=== PATIENT | female | born 1975 | race Caucasian/White ===

== ENCOUNTER 2020-03-03 16:06 | Emergency (ER) | payer OTHER ==
[~2020-03-03] VITALS: Ht 175.3 cm; Wt 100.0 kg
[2020-03-03] MEDS ORDERED: IOHEXOL 300 MG/ML 75 ML VIAL. IV ONE (16:45)
[2020-03-03] MEDS ORDERED: CONTRAST GIVEN. MC PRN (16:45)
[2020-03-03 17:02] LABS: BASO % 0 % (0-3); EOS % 0 % (0-3); HEMATOCRIT 40.5 % (36.0-47.0); HEMOGLOBIN 13.8 g/dL (12.0-15.5); LYMPH # 2.1 x10^3/uL (1.0-4.8); LYMPH % 38 % (24-48); MEAN CORPUSCULAR HEMOGLOBIN 30 pg (25-35); MEAN CORPUSCULAR HGB CONC 34 g/dL (31-37); MEAN CORPUSCULAR VOLUME 88 fL (79-100); MONO # 0.3 x10^3/uL (0.0-1.1); MONO % 6 % (0-9); NEUT % 56 % (31-73); PLATELET COUNT 252 x10^3/uL (140-400); RED BLOOD COUNT 4.61 x10^6/uL (3.50-5.40); RED CELL DISTRIBUTION WIDTH 13.2 % (11.5-14.5); WHITE BLOOD COUNT 5.4 x10^3/uL (4.0-11.0)
[2020-03-03 17:13] LABS: CALCIUM 9.1 mg/dL (8.5-10.1); CREATININE 0.9 mg/dL (0.6-1.0); GFR 67.4
[2020-03-03 17:15] LABS: BILIRUBIN,URINE NEG (NEG); CLARITY,URINE CLEAR; COLOR,URINE STRAW; GLUCOSE,URINE NEG (NEG); UROBILINOGEN,URINE 0.2 mg/dL (0.2 mg/dL)
[2020-03-03 17:16] LABS: BACTERIA,URINE 0 /HPF (0-FEW); NITRITE,URINE NEG (NEG); RBC,URINE 0 /HPF (0-2); WBC,URINE 0 /HPF (0-4)
[2020-03-03 17:20] LABS: ALBUMIN 3.9 g/dL (3.4-5.0); ALBUMIN/GLOBULIN RATIO 1.1 (1.0-1.7); TOTAL BILIRUBIN 0.2 mg/dL (0.2-1.0); TOTAL PROTEIN 7.4 g/dL (6.4-8.2)
--- NOTE | 2020-03-03 17:30 | RAD ---
Exam: CT of abdomen and pelvis with contrast INDICATION: Abdominal pain, vaginal bleeding TECHNIQUE: Sequential axial images through the abdomen and pelvis obtained following the administration of 75 mL of Omni 300 IV contrast. Sagittal and coronal reformatted images were reconstructed from the axial data and reviewed. Comparisons: None FINDINGS: Heart size is normal. No pericardial Effusion. Visualized lung bases are clear. No pleural effusion. Liver, spleen, pancreas, gallbladder and adrenals are unremarkable. No perinephric inflammation or hydronephrosis. No renal or ureteral calculi are identified. Bladder is decompressed not well evaluated. Uterus is absent. There is a cystic lesion at the right adnexa which measures approximately 2.5 cm in diameter. Large and small bowel are unremarkable. Appendix is normal. No free intra-abdominal air or fluid. No obstruction. Abdominal aorta has a normal course and caliber. Abdominal vasculature is patent. No enlarged abdominal lymph nodes are identified. No suspicious osseous lesions or acute fractures. IMPRESSION: 1. Cystic lesion at the right adnexa measuring approximately 2.5 cm incompletely evaluated on CT. 2. Hysterectomy changes. Exposure: One or more of the following in the visualized dose reduction techniques were utilized for this examination: 1. Automated exposure control 2. Adjustment of the MA and/or KV according to patient size 3. Use of iterative of reconstructive technique Electronically signed by: Hi Reynolds MD (03/03/2020 5:27 PM) [id number]
--- NOTE | 2020-03-03 17:41 | PHYS DOC ---
Past History Past Medical History: Endometriosis, Migraines (EFRAIN CARLOS DO) Past Surgical History: , Hysterectomy (EFRAIN CARLOS DO) Alcohol Use: None (EFRAIN CARLOS DO) General Adult EDM: Chief Complaint: ABDOMINAL PAIN HPI: HPI: Patient is a [age] year old [sex] who presents with [] (EFRAIN CARLOS DO) Review of Systems: Review of Systems: Constitutional: Denies fever or chills Eyes: Denies change in visual acuity HENT: Denies nasal congestion or sore throat Respiratory: Denies cough or shortness of breath Cardiovascular: Denies chest pain or edema GI: Denies abdominal pain, nausea, vomiting, bloody stools or diarrhea : Denies dysuria Musculoskeletal: Denies back pain or joint pain Integument: Denies rash Neurologic: Denies headache, focal weakness or sensory changes Endocrine: Denies polyuria or polydipsia Lymphatic: Denies swollen glands Psychiatric: Denies depression or anxiety (EFRAIN CARLOS DO) Heart Score: Risk Factors: Risk Factors: DM, Current or recent (<one month) smoker, HTN, HLP, family history of CAD, obesity. Risk Scores: Score 0 - 3: 2.5% MACE over next 6 weeks - Discharge Home Score 4 - 6: 20.3% MACE over next 6 weeks - Admit for Clinical Observation Score 7 - 10: 72.7% MACE over next 6 weeks - Early Invasive Strategies (EFRAIN CARLOS DO) Current Medications: Current Meds: Current Medications Medications (Trade) Dose Ordered Sig/Juanita Start Time Stop Time Status Last Admin Dose Admin Info (Do NOT chart on this entry -- for MONITORING) 1 each PRN DAILY PRN 03/03/20 16:45 03/05/20 16:44 Iohexol (Omnipaque 300 Mg/ml) 75 ml 1X ONCE 03/03/20 16:45 03/03/20 16:46 DC 03/03/20 17:07 75 ML (EFRAIN CARLOS DO) Allergies: Allergies: Allergies Coded Allergies Type Severity Reaction Last Updated Verified Wnaywog-Xce-Ppk Reductase Inhibitor Allergy Unknown 03/03/20 Yes Sulfa (Sulfonamide Antibiotics) Allergy Unknown 03/03/20 Yes morphine Allergy Unknown 03/03/20 Yes simvastatin Allergy Unknown 03/03/20 Yes (EFRAIN CARLOS DO) Physical Exam: PE: Constitutional: Well developed, well nourished, no acute distress, non-toxic appearance. [] HENT: Normocephalic, atraumatic, bilateral external ears normal, oropharynx moist, no oral exudates, nose normal. [] Eyes: PERRLA, EOMI, conjunctiva normal, no discharge. [] Neck: Normal range of motion, no tenderness, supple, no stridor. [] Cardiovascular:Heart rate regular rhythm, no murmur [] Lungs & Thorax: Bilateral breath sounds clear to auscultation [] Abdomen: Bowel sounds normal, soft, no tenderness, no masses, no pulsatile masses. [] Skin: Warm, dry, no erythema, no rash. [] Back: No tenderness, no CVA tenderness. [] Extremities: No tenderness, no cyanosis, no clubbing, ROM intact, no edema. [] Neurologic: Alert and oriented X 3, normal motor function, normal sensory function, no focal deficits noted. [] Psychologic: Affect normal, judgement normal, mood normal. [] (EFRAIN CARLOS DO) Current Patient Data: Labs: Laboratory Tests Test 03/03/20 16:41 03/03/20 16:43 Urine Collection Type Unknown Urine Color Straw Urine Clarity Clear Urine pH 5.5 Urine Specific Jameson <=1.005 Urine Protein Neg (NEG-TRACE) Urine Glucose (UA) Neg mg/dL (NEG) Urine Ketones (Stick) Neg mg/dL (NEG) Urine Blood Neg (NEG) Urine Nitrite Neg (NEG) Urine Bilirubin Neg (NEG) Urine Urobilinogen Dipstick 0.2 mg/dL (0.2 mg/dL) Urine Leukocyte Esterase Neg (NEG) Urine RBC 0 /HPF (0-2) Urine WBC 0 /HPF (0-4) Urine Bacteria 0 /HPF (0-FEW) White Blood Count 5.4 x10^3/uL (4.0-11.0) Red Blood Count 4.61 x10^6/uL (3.50-5.40) Hemoglobin 13.8 g/dL (12.0-15.5) Hematocrit 40.5 % (36.0-47.0) Mean Corpuscular Volume 88 fL (79-100) Mean Corpuscular Hemoglobin 30 pg (25-35) Mean Corpuscular Hemoglobin Concent 34 g/dL (31-37) Red Cell Distribution Width 13.2 % (11.5-14.5) Platelet Count 252 x10^3/uL (140-400) Neutrophils (%) (Auto) 56 % (31-73) Lymphocytes (%) (Auto) 38 % (24-48) Monocytes (%) (Auto) 6 % (0-9) Eosinophils (%) (Auto) 0 % (0-3) Basophils (%) (Auto) 0 % (0-3) Neutrophils # (Auto) 3.0 x10^3uL (1.8-7.7) Lymphocytes # (Auto) 2.1 x10^3/uL (1.0-4.8) Monocytes # (Auto) 0.3 x10^3/uL (0.0-1.1) Eosinophils # (Auto) 0.0 x10^3/uL (0.0-0.7) Basophils # (Auto) 0.0 x10^3/uL (0.0-0.2) Sodium Level 138 mmol/L (136-145) Potassium Level 4.0 mmol/L (3.5-5.1) Chloride Level 102 mmol/L (98-107) Carbon Dioxide Level 32 mmol/L (21-32) Anion Gap 4 (6-14) L Blood Urea Nitrogen 12 mg/dL (7-20) Creatinine 0.9 mg/dL (0.6-1.0) Estimated GFR (Cockcroft-Gault) 67.4 BUN/Creatinine Ratio 13 (6-20) Glucose Level 104 mg/dL (70-99) H Calcium Level 9.1 mg/dL (8.5-10.1) Total Bilirubin 0.2 mg/dL (0.2-1.0) Aspartate Amino Transferase (AST) 20 U/L (15-37) Alanine Aminotransferase (ALT) 37 U/L (14-59) Alkaline Phosphatase 94 U/L (46-116) Total Protein 7.4 g/dL (6.4-8.2) Albumin 3.9 g/dL (3.4-5.0) Albumin/Globulin Ratio 1.1 (1.0-1.7) Vital Signs: Vital Signs Date Time Temp Pulse Resp B/P (MAP) Pulse Ox O2 Delivery O2 Flow Rate FiO2 03/03/20 16:31 98.2 92 18 151/83 (105) 97 Room Air (EFRAIN CARLOS DO) EKG: EKG: [] (EFRAIN CARLOS DO) Radiology/Procedures: Radiology/Procedures: [] Impressions: Exam: CT of abdomen and pelvis with contrast INDICATION: Abdominal pain, vaginal bleeding TECHNIQUE: Sequential axial images through the abdomen and pelvis obtained following the administration of 75 mL of Omni 300 IV contrast. Sagittal and coronal reformatted images were reconstructed from the axial data and reviewed. Comparisons: None FINDINGS: Heart size is normal. No pericardial Effusion. Visualized lung bases are clear. No pleural effusion. Liver, spleen, pancreas, gallbladder and adrenals are unremarkable. No perinephric inflammation or hydronephrosis. No renal or ureteral calculi are identified. Bladder is decompressed not well evaluated. Uterus is absent. There is a cystic lesion at the right adnexa which measures approximately 2.5 cm in diameter. Large and small bowel are unremarkable. Appendix is normal. No free intra-abdominal air or fluid. No obstruction. Abdominal aorta has a normal course and caliber. Abdominal vasculature is patent. No enlarged abdominal lymph nodes are identified. No suspicious osseous lesions or acute fractures. IMPRESSION: 1. Cystic lesion at the right adnexa measuring approximately 2.5 cm incompletely evaluated on CT. 2. Hysterectomy changes. Exposure: One or more of the following in the visualized dose reduction techniques were utilized for this examination: 1. Automated exposure control 2. Adjustment of the MA and/or KV according to patient size 3. Use of iterative of reconstructive technique Electronically signed by: Hi Quiles MD (03/03/2020 5:27 PM) [id number] DICTATED AND SIGNED BY: HI QUILES MD DATE: 03/03/20 1727 CC: EFRAIN CARLOS DO; PCP,NO ~ (EFRAIN CARLOS DO) Course & Med Decision Making: Course & Med Decision Making Pertinent Labs and Imaging studies reviewed. (See chart for details) The patient's labs are unremarkable. Her CT shows possible 2.5 cm cyst in the right adnexa. This is not completely visualized. See official order for more details. I will order an ultrasound to rule out torsion. Patient has had a total hysterectomy including her cervix. One ovary was left after that surgery. She does not member if it was the right or the left. Ultrasound is pending. I am signing the patient out to Dr. Nathan at 1800. [] (EFRAIN CARLOS DO) Course & Med Decision Making Patient seen and evaluated by myself after thorough signout from daytime physician Agreed with daytime physicians HPI, reported physical exam findings and work-up thus far Patient asymptomatic at time of my evaluation, I discussed ER work-up with patient, I discussed little indication or need for further ER work-up or inpatient admission at this time, patient agreed Discussed need for close outpatient PCP follow-up, patient reports having [facility] M[employer] ASSISTANT established in local area whom she could follow-up about right ovarian cyst, I feel this is appropriate I discussed strict return precautions for patient's abdominal pain, all questions and concerns were addressed prior to ER departure home in stable condition Patient aware that this may be an acute presentation of more concerning process and amenable to returning to our ER for medical evaluation should such concerning signs or symptoms re-present (MARILEE HAGER DO) Dragon Disclaimer: Dragon Disclaimer: This electronic medical record was generated, in whole or in part, using a voice recognition dictation system. (EFRAIN CARLOS DO) Departure Departure: Impression: Primary Impression: Abdominal pain Qualified Codes: R10.30 - Lower abdominal pain, unspecified Additional Impression: Right ovarian cyst Disposition: HOME/RESIDENCE PRIOR TO ADM Condition: STABLE Referrals: PCP,NO (PCP) Patient Instructions: Ovarian Cyst, [id number] Additional Instructions: You have been evaluated in the Emergency Department today for abdominal pain. Your evaluation was not suggestive of any emergent condition requiring medical intervention at this time. However, some abdominal problems make take more time to appear. Therefore, it is important for you to watch for any new symptoms or worsening of your current condition. As discussed prior to your ER departure, I advised you to follow-up with your primary care physician and outpatient [employer] ASSISTANT to discuss findings and further management of your right ovarian cyst Return to the Emergency Department if you experience worsening pain, persistent fevers greater than 100.4, recurrent vomiting, blood in vomit, blood in stool, dark tarry stool, chest pain, difficulty breathing, or any other concerning symptoms. Justification of Admission: Justification of Admission: Justification of Admission Dx: N/A (EFRAIN CARLOS DO) Justification of Admission Dx: N/A (MARILEE HAGER DO) EFRAIN CARLOS DO Mar 03, 2020 17:41 MARILEE HAGER DO Mar 03, 2020 18:51
[2020-03-03 18:04] VITALS: BP 152/92
--- NOTE | 2020-03-03 18:19 | RAD ---
Transvaginal ultrasound History: Cyst on CT Comparison: CT the same day Findings: Multiple transvaginal sonographic images of the pelvis are submitted. There has been hysterectomy and left oophorectomy. Right ovary measured 3.6 x 2.2 x 2.3 cm. There is an anechoic lesion of the right ovary 2.5 x 1.9 x 2.3 cm. There is normal color flow and low resistance vascularity of the right ovary. There is trace free fluid in the pelvis. Impression: 1. There is simple cyst of the right ovary. There is trace free fluid. There has been hysterectomy and left oophorectomy. Electronically signed by: Lam Hutchison MD (03/03/2020 6:16 PM) [facility]
== END 2020-03-03 19:03 | disposition home or self-care (01) ==
LOC: ER 16:06
DX: N83.201 Unspecified ovarian cyst, right side (principal); G43.909 Migraine, unspecified, not intractable, without status migrainosus; Z98.890 Other specified postprocedural states; Z90.710 Acquired absence of both cervix and uterus; Z88.5 Allergy status to narcotic agent; Z88.2 Allergy status to sulfonamides; Z88.8 Allergy status to other drugs, medicaments and biological substances
CPT/HCPCS: 36415; 74177; 76830; 80053; 81001; 85025; 99285; Q9967

== ENCOUNTER → 2020-05-07 | Outpatient (CLI) | payer OTHER ==
--- NOTE | 2020-05-07 14:55 | RAD ---
ANKLE LEFT 3V DATE: 05/07/2020 12:00 AM INDICATION: LEFT ANKLE PAIN AFTER WORKING OUT 1 WEEK AGO COMPARISON: None. FINDINGS: Bones: There is no evidence of acute fracture or dislocation. Joints: The ankle mortise is congruent. No widening of the distal tibiofibular syndesmosis. Miscellaneous: None. IMPRESSION: No evidence of acute fracture. Electronically signed by: Lam King MD (05/07/2020 2:53 PM) [id number]
== END ==
LOC: DXRAD 14:02
PROVIDERS: ATTEND Physician Assistant
DX: S99.912A Unspecified injury of left ankle, initial encounter (principal); X58.XXXA Exposure to other specified factors, initial encounter; Y93.89 Activity, other specified; Y92.89 Other specified places as the place of occurrence of the external cause; Y99.8 Other external cause status
CPT/HCPCS: 73610

== ENCOUNTER 2020-07-18 12:10 | Emergency (ER) | payer OTHER ==
[~2020-07-18] VITALS: Ht 175.3 cm; Wt 105.4 kg
--- NOTE | 2020-07-18 12:46 | PHYS DOC ---
Past History Past Medical History: Endometriosis, Migraines, Other Additional Past Medical Histor: CHRONIC IDIOPATHIC URTICARIA (WINSTON SHETTY APRN) Past Surgical History: , Hysterectomy (WINSTON SHETTY APRN) Alcohol Use: None (WINSTON SHETTY APRN) Adult General Chief Complaint Chief Complaint: HEADACHE HPI HPI Patient is a 44-year-old female who reports 7 days ago last Monday she was getting something out of a bunk bed and went to stand up and bumped the back of her head. Patient denies any loss of consciousness from this bumping of her head. Patient states since then she is had intermittent headaches with nausea. Patient denies vomiting, patient denies abdominal pain, constipation, or seeing blood in her stools. Patient denies any nasal congestion, chest congestion, chest pains. Patient denies any recent fever or chills. Patient states she has a history of migraines, reports that this headache feels much like a migraine except for her migraines usually manifest with a frontal headache with this 1 manifesting with occipital head pain. Patient states this pain radiates down the back of her neck and currently rates her pain at 8/10 pain on a 1-10 pain scale. Patient states she has taken a few doses of Tylenol over the past week and noticed only mild relief of her headache pains. Patient also complains of photophobia, denies visual changes, denies numbness or tingling down her extremities, denies other neurological symptoms. Patient denies any nasal drainage, denies any drainage from her ears. Patient reports past surgical history of endometrial ablation, 2 C-sections, and a hysterectomy. Patient's allergies are to sulfa, statins, and morphine. Patient states she takes Xolair 300 mg q. 4 weeks for a chronic idiopathic urticaria which has caused her to have anaphylactic reactions. Patient states her last reaction was greater than 1 year ago. Patient denies any other injuries or physical complaints. (WINSTON SHETTY APRN) Review of Systems Review of Systems 14 body systems of review of systems have been reviewed. See HPI for pertinent positives and negative responses, otherwise all other systems are negative, nonpertinent or noncontributory. (WINSTON SHETTY APRN) Current Medications Current Medications Patient reports a current medication history of Xolair 300 mg q. 4 weeks, estrogen 1.5 mg daily, Effexor 75 mg daily, Zyrtec 10 mg daily, vitamin D supplement daily, omega-3 supplement daily. (WINSTON SHETTY APRN) Allergies Allergies Allergies Coded Allergies Type Severity Reaction Last Updated Verified Eatqiyj-Gfi-Ors Reductase Inhibitor Allergy Unknown 03/03/20 Yes Sulfa (Sulfonamide Antibiotics) Allergy Unknown 03/03/20 Yes morphine Allergy Unknown 03/03/20 Yes simvastatin Allergy Unknown 03/03/20 Yes (WINSTON SHETTY APRN) Physical Exam Physical Exam Constitutional: Well developed, well nourished, no acute distress, non-toxic appearance. HENT: Normocephalic, atraumatic, bilateral external ears normal, oropharynx moist, no oral exudates, nose normal. Pain elicited in occipital area, no depression noted, no ecchymotic area noted, no hematoma appreciated, skin intact. No nolan sign appreciated, no raccoon eyes appreciated, no drainage from naris, no drainage from external auditory canals bilateral. Eyes: PERRLA, EOMI, conjunctiva normal, no discharge. Pupils 4 mm, photophobia elicited during eye exam. Neck: Normal range of motion, with midline spinal tenderness to palpation, no step-offs appreciated, no ecchymotic areas appreciated, no crepitus appreciated, no nuchal rigidity, supple, no stridor. Cardiovascular:Heart rate regular rhythm, no murmur, heart sounds S1-S2 to auscultation. Lungs & Thorax: Bilateral breath sounds clear to auscultation all lung knight. Abdomen: Bowel sounds normal, soft, no tenderness, no masses, no pulsatile m asses. Skin: Warm, dry, no erythema, no rash. Back: No tenderness, no CVA tenderness. Extremities: No tenderness, no cyanosis, no clubbing, ROM intact, no edema. Neurologic: Alert and oriented X 3, normal motor function, normal sensory function, no focal deficits noted. Psychologic: Affect normal, judgement normal, mood normal. (WINSTON SHETTY APRN) Current Patient Data Vital Signs Vital Signs Date Time Temp Pulse Resp B/P (MAP) Pulse Ox O2 Delivery O2 Flow Rate FiO2 07/18/20 12:20 97.7 73 20 151/85 (107) 97 Room Air (WINSTON SHETTY APRN) EKG EKG [] (WINSTON SHETTY APRN) Radiology/Procedures Radiology/Procedures SEX: F EXAM STATUS: REG ER ORD. PHYSICIAN: WINSTON SHETTY APRN REASON: BLUNT HEAD TRAUMA OCCIPITAL AREA WITH MIDLINE SPINE PAIN PROCEDURE: CT HEAD AND CERVICAL SPINE WO CT brain without contrast, CT C-spine without contrast. HISTORY: Blunt head trauma occipital area, midline C-spine pain CT brain CT scan of the brain was done without contrast. A skull fracture is not identified. Sinuses are clear. There is no intracranial hemorrhage or subdural hematoma. There is no mass or shift of the midline. Ventricles are normal in size. IMPRESSION: 1. No intracranial hemorrhage or acute finding noted. End impression CT cervical spine Axial CT images were obtained to the cervical spine. Sagittal and coronal reconstructed images were reviewed. An acute C-spine fracture is not identified. There is no focal disc protrusion. There is disc space narrowing at C5-6 with spurring. C-spine is in normal alignment. IMPRESSION: 1. Mild degenerative changes in the cervical spine most prominent at C5-6. 2. No acute C-spine fracture. RS Compliance Statement: One or more of the following individualized dose reduction techniques were utilized for this examination: 1. Automated exposure control 2. Adjustment of the mA and/or kV according to patient size 3. Use of iterative reconstruction technique Electronically signed by: Chintan Ayala MD (07/18/2020 1:08 PM) [facility] DICTATED AND SIGNED BY: CHINTAN AYALA MD DATE: 07/18/20 1300 CC: WINSTON SHETTY APRN; KATHERINE KELLY APRN ~MTH0 0 (WINSTON SHETTY APRN) Heart Score Risk Factors: Risk Factors: DM, Current or recent (<one month) smoker, HTN, HLP, family history of CAD, obesity. Risk Scores: Risk Factors: DM, Current or recent (<one month) smoker, HTN, HLP, family history of CAD, obesity. (WINSTON SHETTY APRN) Course & Med Decision Making Course & Med Decision Making Pertinent Labs and Imaging studies reviewed. (See chart for details) 44-year-old female presents to the emergency department reporting a blunt head trauma to her occipital area 7 days ago. Patient reports intermittent headaches with nausea since bumping her head. Patient does have a history of migraine headaches and reports this headache very similar to her previous migraines however she hurts in her occipital area rather than her frontal area. ED plan CT head and C-spine without contrast, saline lock, 4 mg IV Zofran, CBC, CMP. Pending results at this time. CT head and C-spine read negative for acute fracture or acute process for house radiologist or rotation. Labs were nonconcerning. Will treat headache with headache cocktail to include 1 L normal saline, 30 mg Toradol IV, 10 mg Compazine IV, 25 mg Benadryl IV. Reexamination of patient, patient states total pain relief of her headache. Patient has no further aches or pains or physical complaints. Discussed CT and lab results with patient, patient gave verbal understanding of discharge home instructions, return to ER precautions and concerns, will follow up with her primary care doctor if symptoms persist, had no further questions or concerns and was discharged home without incident. (WINSTON SHETTY APRN) Course & Med Decision Making I oversaw on the above date of service of this patient and discussed the care with the DISHWASHER PREPARER. I agree with the findings, plan of care, and disposition as documented. (MARILEE HAGER DO) Dragon Disclaimer Dragon Disclaimer This electronic medical record was generated, in whole or in part, using a voice recognition dictation system. (WINSTON SHETTY APRN) Departure Departure: Impression: Primary Impression: Blunt head injury Additional Impressions: Headache Nausea Disposition: 01 DC HOME SELF CARE/HOMELESS Condition: IMPROVED Referrals: KATHERINE KELLY APRN (PCP) Patient Instructions: Head Injury, Adult Additional Instructions: Your evaluated in the emergency department today for a head injury, the CT scan performed of your head and cervical spine did not show any concerning injuries. Please follow-up with your primary care doctor if symptoms persist. Return to the emergency department for worsening symptoms or other concerns Problem Qualifiers Primary Impression: Blunt head injury Encounter type: initial encounter Qualified Codes: S09.8XXA - Other specified injuries of head, initial encounter Additional Impressions: Headache Headache type: unspecified Headache chronicity pattern: unspecified pattern Intractability: not intractable Qualified Codes: R51.9 - Headache, unspecified WINSTON SHETTY APRN Jul 18, 2020 12:46 MARILEE HAGER DO Jul 19, 2020 06:08
[2020-07-18 13:00] LABS: BASO % 0 % (0-3); EOS % 0 % (0-3); HEMATOCRIT 41.7 % (36.0-47.0); HEMOGLOBIN 14.3 g/dL (12.0-15.5); LYMPH # 1.8 x10^3/uL (1.0-4.8); LYMPH % 37 % (24-48); MEAN CORPUSCULAR HEMOGLOBIN 30 pg (25-35); MEAN CORPUSCULAR HGB CONC 34 g/dL (31-37); MEAN CORPUSCULAR VOLUME 86 fL (79-100); MONO # 0.3 x10^3/uL (0.0-1.1); MONO % 6 % (0-9); NEUT # 2.8 x10^3uL (1.8-7.7); NEUT % 57 % (31-73); PLATELET COUNT 258 x10^3/uL (140-400); RED BLOOD COUNT 4.83 x10^6/uL (3.50-5.40); RED CELL DISTRIBUTION WIDTH 12.9 % (11.5-14.5); WHITE BLOOD COUNT 4.8 x10^3/uL (4.0-11.0)
[2020-07-18] MEDS ORDERED: ONDANSETRON PF 4 MG/2 ML VIAL. IVP ONE (13:00)
[2020-07-18 13:02] LABS: CALCIUM 9.1 mg/dL (8.5-10.1); CREATININE 0.9 mg/dL (0.6-1.0); GFR 67.4; POTASSIUM 3.8 mmol/L (3.5-5.1)
[2020-07-18 13:09] LABS: ALBUMIN/GLOBULIN RATIO 1.1 (1.0-1.7); TOTAL BILIRUBIN 0.3 mg/dL (0.2-1.0); TOTAL PROTEIN 7.7 g/dL (6.4-8.2)
--- NOTE | 2020-07-18 13:17 | RAD ---
CT brain without contrast, CT C-spine without contrast. HISTORY: Blunt head trauma occipital area, midline C-spine pain CT brain CT scan of the brain was done without contrast. A skull fracture is not identified. Sinuses are clear . There is no intracranial hemorrhage or subdural hematoma. There is no mass or shift of the midline. Ventricles are normal in size. IMPRESSION: 1. No intracranial hemorrhage or acute finding noted. End impression CT cervical spine Axial CT images were obtained to the cervical spine. Sagittal and coronal reconstructed images were r eviewed. An acute C-spine fracture is not identified. There is no focal disc protrusion. There is dis c space narrowing at C5-6 with spurring. C-spine is in normal alignment. IMPRESSION: 1. Mild degenerative changes in the cervical spine most prominent at C5-6. 2. No acute C-spine fracture. PQRS Compliance Statement: One or more of the following individualized dose reduction techniques were utilized for this examinat ion: 1. Automated exposure control 2. Adjustment of the mA and/or kV according to patient size 3. Use of iterative reconstruction technique Electronically signed by: Chintan Ayala MD (07/18/2020 1:08 PM) [facility]
[2020-07-18] MEDS ORDERED: diphenhydrAMINE 50 MG/ML VIAL IVP ONE (13:30)
[2020-07-18] MEDS ORDERED: PROCHLORPERAZINE 10 MG/2 ML VIAL. IV ONE (13:30)
[2020-07-18] MEDS ORDERED: KETOROLAC 30 MG/ML VIAL. IVP ONE (13:30)
[2020-07-18] MEDS ORDERED: IV NORMAL SALINE 1,000ML 1,000 ML IV ONE (13:30)
[2020-07-18 13:49] VITALS: BP 136/78
== END 2020-07-18 14:30 | disposition home or self-care (01) ==
LOC: ER 12:10
DX: S09.90XA Unspecified injury of head, initial encounter (principal); G43.909 Migraine, unspecified, not intractable, without status migrainosus; Z88.8 Allergy status to other drugs, medicaments and biological substances; Z88.2 Allergy status to sulfonamides; Z88.5 Allergy status to narcotic agent; W22.8XXA Striking against or struck by other objects, initial encounter; Y93.89 Activity, other specified; Y92.89 Other specified places as the place of occurrence of the external cause; Y99.8 Other external cause status
CPT/HCPCS: 36415; 70450; 72125; 80053; 85025; 96361; 96374; 96375; 99285; J0780; J1200; J1885; J2405; J7030

== ENCOUNTER 2020-09-15 14:48 | Emergency (ER) | payer OTHER ==
[~2020-09-15] VITALS: Ht 175.3 cm; Wt 100.0 kg
[2020-09-15] MEDS: ONDANSETRON PF 4 MG/2 ML VIAL. IVP ONE (15:15)
[2020-09-15] MEDS: IV NORMAL SALINE 1,000ML 1,000 ML IV ONE (15:45)
--- NOTE | 2020-09-15 15:55 | EKG ---
[address] [address] Test Date: 2020-09-15 Test Time: 15:18:38 Pat Name: DONITA MENESES Department: Room: Gender: F [employer] Internship: YAJAIRA : 1975 Requested By: CHARITO VORA Order Number: [id number] Reading MD: Measurements Intervals Ord Rate: 69 P: 0 OH: 144 QRS: 45 QRSD: 84 T: 28 QT: 394 QTc: 424 Interpretive Statements SINUS RHYTHM R-S TRANSITION ZONE IN V LEADS DISPLACED TO THE LEFT OTHERWISE NORMAL ECG RI6.02 No previous ECG available for comparison
[2020-09-15 15:59] LABS: CALCIUM 9.7 mg/dL (8.5-10.1); CREATININE 0.8 mg/dL (0.6-1.0); GFR 76.9; POTASSIUM 4.4 mmol/L (3.5-5.1)
[2020-09-15 16:00] LABS: BASO % 0 % (0-3); EOS % 0 % (0-3); HEMATOCRIT 42.2 % (36.0-47.0); HEMOGLOBIN 14.4 g/dL (12.0-15.5); LYMPH # 1.3 x10^3/uL (1.0-4.8); LYMPH % 27 % (24-48); MEAN CORPUSCULAR HEMOGLOBIN 29 pg (25-35); MEAN CORPUSCULAR HGB CONC 34 g/dL (31-37); MEAN CORPUSCULAR VOLUME 87 fL (79-100); MONO # 0.4 x10^3/uL (0.0-1.1); MONO % 8 % (0-9); NEUT # 3.1 x10^3uL (1.8-7.7); NEUT % 65 % (31-73); PLATELET COUNT 258 x10^3/uL (140-400); RED BLOOD COUNT 4.88 x10^6/uL (3.50-5.40); RED CELL DISTRIBUTION WIDTH 12.8 % (11.5-14.5); WHITE BLOOD COUNT 4.8 x10^3/uL (4.0-11.0)
[2020-09-15 16:04] LABS: ALBUMIN 4.2 g/dL (3.4-5.0); ALBUMIN/GLOBULIN RATIO 1.2 (1.0-1.7); TOTAL BILIRUBIN 0.4 mg/dL (0.2-1.0); TOTAL PROTEIN 7.7 g/dL (6.4-8.2)
[2020-09-15 16:09] LABS: GASTRIC OB PAT POSITIVE (NEG)
[2020-09-15] MEDS: IOHEXOL 300 MG/ML 75 ML VIAL. IV ONE (16:18)
--- NOTE | 2020-09-15 16:47 | RAD ---
CT abdomen pelvis with contrast. HISTORY: Hematemesis CT scan the abdomen pelvis was done using 75 mL Omnipaque contrast. Lung bases are clear. There is no effusion. There is a tiny cysts in the left liver. There is mild fatty change in the liver. No other liver lesion is noted. Spleen is generous in size without a focal lesion. Adrenal glands and pancrea s are normal. There is no mass or hydronephrosis in the kidneys. Appendix is normal. There are phlebo liths in the pelvis. A ureteral calculus is not identified. Patient's had a hysterectomy. There is a tiny cyst or follicle in the left ovary less than a centimeter. There is no free air or free fluid. There is no definite abnormality noted in the stomach. There is no small bowel obstruction. IMPRESSION: 1. Fatty change in the liver. 2. No abdominal or pelvic mass or other acute finding. 3. Normal appendix. 4. No bowel obstruction. 5. No definite abnormality in the stomach. PQRS Compliance Statement: One or more of the following individualized dose reduction techniques were utilized for this examinat ion: 1. Automated exposure control 2. Adjustment of the mA and/or kV according to patient size 3. Use of iterative reconstruction technique Electronically signed by: Chintan Ayala MD (09/15/2020 4:45 PM) [id number]
[2020-09-15] MEDS: PANTOPRAZOLE IV 40 MG VIAL. IVP ONE (17:00)
[2020-09-15 17:48] VITALS: BP 112/65
[2020-09-15] MEDS ORDERED: SUCR1TAB35 PO (18:07)
[2020-09-15] MEDS ORDERED: PANT40TA3 PO (18:07)
--- NOTE | 2020-09-15 18:07 | PHYS DOC ---
Past History Past Medical History: Endometriosis, Migraines, Other Additional Past Medical Histor: CHRONIC IDIOPATHIC URTICARIA Past Surgical History: , Hysterectomy, Other Alcohol Use: None General Adult EDM: Chief Complaint: HEMATEMESIS/VOMITING BLOOD HPI: HPI: Patient is a 45-year-old female coming in for 6 or 7 episodes of bloody emesis today. Says is range from red blood to coffee-ground emesis. Has been small- volume but numerous times. Complaint epigastric pain. Denies any history of ulcers, gastritis, liver disease, heavy drinking, regular NSAID use. Denies any diarrhea, melena or bloody stools. States she otherwise has been well. Does not take any blood thinners. Has never had an endoscopy before Review of Systems: Review of Systems: All other systems within normal limits except for as noted in the HPI Current Medications: Current Meds: Current Medications Medications (Trade) Dose Ordered Sig/Juanita Start Time Stop Time Status Last Admin Dose Admin Fentanyl Citrate (Fentanyl 2ml Vial) 75 mcg 1X ONCE 09/15/20 15:45 09/15/20 15:51 DC 09/15/20 15:45 75 MCG Iohexol (Omnipaque 300 Mg/ml) 75 ml 1X ONCE 09/15/20 16:00 09/15/20 16:01 DC 09/15/20 16:18 75 ML Ondansetron HCl (Zofran) 4 mg 1X ONCE 09/15/20 15:15 09/15/20 15:19 DC 09/15/20 15:15 4 MG Pantoprazole Sodium (Protonix Vial) 40 mg 1X ONCE 09/15/20 17:00 09/15/20 17:12 DC 09/15/20 17:00 40 MG Sodium Chloride 1,000 ml @ 1,000 mls/hr 1X ONCE 09/15/20 15:45 09/15/20 16:44 DC 09/15/20 15:45 1,000 MLS/HR Allergies: Allergies: Allergies Coded Allergies Type Severity Reaction Last Updated Verified Hzlwort-Efp-Rih Reductase Inhibitor Allergy Unknown 03/03/20 Yes Sulfa (Sulfonamide Antibiotics) Allergy Unknown 03/03/20 Yes morphine Allergy Unknown 03/03/20 Yes simvastatin Allergy Unknown 03/03/20 Yes Physical Exam: PE: Constitutional: Well developed, well nourished, no acute distress, non-toxic a ppearance. [] HENT: Normocephalic, atraumatic, bilateral external ears normal, nose normal. [] Eyes: PERRLA, conjunctiva normal, no discharge. [] Neck: No rigidity, supple, no stridor. [] Cardiovascular: Regular rate and rhythm, brisk cap refill [] Lungs & Thorax: Non labored symmetric respirations, no tachypnea or respiratory distress [] Abdomen: Soft, nondistended echograms tenderness, no guarding rebound. Skin: Warm, dry, no erythema, no rash. [] Back: Unremarkable Extremities: No deformities, range of motion grossly intact, no lower extremity edema [] Neurologic: Alert and oriented X 3, no focal deficits noted. [] Psychologic: Affect normal, judgement normal, mood normal. [] Current Patient Data: Labs: Laboratory Tests Test 09/15/20 15:01 09/15/20 15:05 09/15/20 15:56 Sodium Level 143 mmol/L (136-145) Potassium Level 4.4 mmol/L (3.5-5.1) Chloride Level 103 mmol/L (98-107) Carbon Dioxide Level 27 mmol/L (21-32) Anion Gap 13 (6-14) Blood Urea Nitrogen 14 mg/dL (7-20) Creatinine 0.8 mg/dL (0.6-1.0) Estimated GFR (Cockcroft-Gault) 76.9 BUN/Creatinine Ratio 18 (6-20) Glucose Level 104 mg/dL (70-99) H Calcium Level 9.7 mg/dL (8.5-10.1) Total Bilirubin 0.4 mg/dL (0.2-1.0) Aspartate Amino Transferase (AST) 36 U/L (15-37) Alanine Aminotransferase (ALT) 82 U/L (14-59) H Alkaline Phosphatase 77 U/L (46-116) Troponin I Quantitative < 0.017 ng/mL (0-0.055) Total Protein 7.7 g/dL (6.4-8.2) Albumin 4.2 g/dL (3.4-5.0) Albumin/Globulin Ratio 1.2 (1.0-1.7) White Blood Count 4.8 x10^3/uL (4.0-11.0) Red Blood Count 4.88 x10^6/uL (3.50-5.40) Hemoglobin 14.4 g/dL (12.0-15.5) Hematocrit 42.2 % (36.0-47.0) Mean Corpuscular Volume 87 fL (79-100) Mean Corpuscular Hemoglobin 29 pg (25-35) Mean Corpuscular Hemoglobin Concent 34 g/dL (31-37) Red Cell Distribution Width 12.8 % (11.5-14.5) Platelet Count 258 x10^3/uL (140-400) Neutrophils (%) (Auto) 65 % (31-73) Lymphocytes (%) (Auto) 27 % (24-48) Monocytes (%) (Auto) 8 % (0-9) Eosinophils (%) (Auto) 0 % (0-3) Basophils (%) (Auto) 0 % (0-3) Neutrophils # (Auto) 3.1 x10^3uL (1.8-7.7) Lymphocytes # (Auto) 1.3 x10^3/uL (1.0-4.8) Monocytes # (Auto) 0.4 x10^3/uL (0.0-1.1) Eosinophils # (Auto) 0.0 x10^3/uL (0.0-0.7) Basophils # (Auto) 0.0 x10^3/uL (0.0-0.2) Prothrombin Time 9.9 SEC (9.4-11.4) Prothrombin Time INR 1.0 (0.9-1.1) Gastric Fluid Occult Blood Positive (NEG) Vital Signs: Vital Signs Date Time Temp Pulse Resp B/P (MAP) Pulse Ox O2 Delivery O2 Flow Rate FiO2 09/15/20 17:48 97.8 60 16 112/65 (81) 100 Room Air EKG: EKG: Sinus rhythm, normal axis, no ST elevation depression, no ectopy. Heart rate 69 [] Radiology/Procedures: Radiology/Procedures: CT abdomen pelvis with contrast. HISTORY: Hematemesis CT scan the abdomen pelvis was done using 75 mL Omnipaque contrast. Lung bases are clear. There is no effusion. There is a tiny cysts in the left liver. There is mild fatty change in the liver. No other liver lesion is noted. Spleen is generous in size without a focal lesion. Adrenal glands and pancreas are normal. There is no mass or hydronephrosis in the kidneys. Appendix is normal. There are phleboliths in the pelvis. A ureteral calculus is not identified. Patient's had a hysterectomy. There is a tiny cyst or follicle in the left ovary less than a centimeter. There is no free air or free fluid. There is no definite abnormality noted in the stomach. There is no small bowel obstruction. IMPRESSION: 1. Fatty change in the liver. 2. No abdominal or pelvic mass or other acute finding. 3. Normal appendix. 4. No bowel obstruction. 5. No definite abnormality in the stomach. [] Heart Score: C/O Chest Pain: No Risk Factors: Risk Factors: DM, Current or recent (<one month) smoker, HTN, HLP, family history of CAD, obesity. Risk Scores: Score 0 - 3: 2.5% MACE over next 6 weeks - Discharge Home Score 4 - 6: 20.3% MACE over next 6 weeks - Admit for Clinical Observation Score 7 - 10: 72.7% MACE over next 6 weeks - Early Invasive Strategies Course & Med Decision Making: Course & Med Decision Making Pertinent Labs and Imaging studies reviewed. (See chart for details) Symptoms improved, no elevation in her BUN. Hemoglobin stable. Discussed return precautions and follow-up with GI. [] Dragon Disclaimer: Dragon Disclaimer: This electronic medical record was generated, in whole or in part, using a voice recognition dictation system. Departure Departure: Impression: Primary Impression: Hematemesis Disposition: 01 DC HOME SELF CARE/HOMELESS Condition: IMPROVED Referrals: KATHERINE KELLY APRN (PCP) Patient Instructions: Diet for Gastroesophageal Reflux Disease, Adult Additional Instructions: Follow-up with Dr. Rubio [address] [place] [address] [employer] Pantoprazole Sodium (PROTONIX) 40 Mg Tablet. 1 TAB PO DAILY for antacid, #30 TAB 5 Refills Prov: CHARITO VORA MD 09/15/20 Sucralfate (CARAFATE) 1 Gm Tablet 1 TAB PO TID for gastritis for 30 Days, #90 TAB 0 Refills Prov: CHARITO VORA MD 09/15/20 CHARITO VORA MD Sep 15, 2020 18:07
== END 2020-09-15 18:16 | disposition home or self-care (01) ==
LOC: ER 14:48
DX: K92.0 Hematemesis (principal); R10.13 Epigastric pain; G43.909 Migraine, unspecified, not intractable, without status migrainosus; Z98.890 Other specified postprocedural states; Z90.710 Acquired absence of both cervix and uterus; Z88.5 Allergy status to narcotic agent; Z88.2 Allergy status to sulfonamides; Z88.8 Allergy status to other drugs, medicaments and biological substances
CPT/HCPCS: 36415; 74177; 80053; 82271; 84484; 85025; 85610; 93005; 96361; 96374; 96375; 99285; C9113; J2405; J3010; J7030; Q9967

== ENCOUNTER 2021-05-23 09:34 | Emergency (ER) | payer OTHER ==
[~2021-05-23] VITALS: Ht 175.3 cm; Wt 103.9 kg
[~2021-05-23 09:34] MED LIST: PANT40TA3 PO; SUCR1TAB35 PO
--- NOTE | 2021-05-23 09:43 | PHYS DOC ---
Past History Past Medical History: Asthma, Other Additional Past Medical Histor: CHRONIC IDIOPATHIC URTICARIA Past Surgical History: , Hysterectomy, Other Smoking: Non-smoker Alcohol Use: None Drug Use: None Adult General HPI HPI Patient is a 45-year-old female presenting for chest pain. Reports symptom onset was yesterday evening while at rest. Denies any known starting event, trauma, ingestion, mechanism of injury or other exposure. Reports she slept well but upon waking up this morning prior to bahai she reported ongoing substernal chest pain that radiated to her right shoulder. Reports pain is dull in nature and sometimes radiates to her back. Denies any history of cardiac abnormalities, has never seen a specialty development consultant or had a provocative cardiac work- up in the past. She has no significant risk factors for cardiac disease, does not smoke drink or do drugs. She denies any significant family history of early cardiac disease. She is otherwise been at baseline health without any major changes or symptoms recently Review of Systems Review of Systems Fourteen body systems of review of systems have been reviewed. See HPI for pertinent positives and negative responses, other ornelas all other systems are negative, non-pertinent or non-contributory Allergies Allergies Allergies Coded Allergies Type Severity Reaction Last Updated Verified Juoejex-Ldj-Exq Reductase Inhibitor Allergy Unknown 03/03/20 Yes Sulfa (Sulfonamide Antibiotics) Allergy Unknown 03/03/20 Yes morphine Allergy Unknown 03/03/20 Yes simvastatin Allergy Unknown 03/03/20 Yes Physical Exam Physical Exam Constitutional: Well developed, well nourished, no acute distress, non-toxic appearance. HENT: Normocephalic, atraumatic, bilateral external ears normal, oropharynx moist, no oral exudates, nose normal. Eyes: PERRLA, EOMI, conjunctiva normal, no discharge. Neck: Normal range of motion, no tenderness, supple, no stridor. Cardiovascular: Heart rate regular, sinus rhythm, no murmurs rubs or gallops Lungs & Thorax: Bilateral breath sounds clear to auscultation Abdomen: Bowel sounds normal, soft, no tenderness, no masses, no pulsatile masses. Nonsurgical abdomen, no peritoneal signs Skin: Warm, dry, no erythema, no rash. Back: No tenderness, no CVA tenderness. Extremities: No tenderness, no cyanosis, no clubbing, ROM intact, no edema. Neurologic: Alert and oriented X 3, grossly normal motor & sensory function, no focal deficits noted. Psychologic: Affect normal, judgement normal, mood normal. Current Patient Data Vital Signs Vital Signs Date Time Temp Pulse Resp B/P (MAP) Pulse Ox O2 Delivery O2 Flow Rate FiO2 05/23/21 10:04 97.5 75 18 146/89 (108) 100 Room Air Vital Signs Date Time Temp Pulse Resp B/P (MAP) Pulse Ox O2 Delivery O2 Flow Rate FiO2 05/23/21 10:08 146/89 05/23/21 10:04 97.5 75 18 100 Room Air Lab Results Laboratory Tests Test 05/23/21 10:00 White Blood Count 4.1 x10^3/uL Red Blood Count 4.60 x10^6/uL Hemoglobin 13.6 g/dL Hematocrit 39.7 % Mean Corpuscular Volume 86 fL Mean Corpuscular Hemoglobin 30 pg Mean Corpuscular Hemoglobin Concent 34 g/dL Red Cell Distribution Width 12.5 % Platelet Count 224 x10^3/uL Neutrophils (%) (Auto) 54 % Lymphocytes (%) (Auto) 39 % Monocytes (%) (Auto) 7 % Eosinophils (%) (Auto) 0 % Basophils (%) (Auto) 0 % Neutrophils # (Auto) 2.2 x10^3uL Lymphocytes # (Auto) 1.6 x10^3/uL Monocytes # (Auto) 0.3 x10^3/uL Eosinophils # (Auto) 0.0 x10^3/uL Basophils # (Auto) 0.0 x10^3/uL D-Dimer (Stacey) < 0.19 mg/L Sodium Level 138 mmol/L Potassium Level 3.7 mmol/L Chloride Level 101 mmol/L Carbon Dioxide Level 31 mmol/L Anion Gap 6 Blood Urea Nitrogen 17 mg/dL Creatinine 0.9 mg/dL Estimated GFR (Cockcroft-Gault) 67.1 Glucose Level 99 mg/dL Calcium Level 9.1 mg/dL Troponin I High Sensitivity 7 ng/L Current Medications Medications (Trade) Dose Ordered Sig/Juanita Route PRN Reason Start Time Stop Time Status Last Admin Dose Admin Aspirin (Ras Aspirin) 325 mg 1X ONCE PO 05/23/21 09:45 05/23/21 10:08 DC 05/23/21 10:08 Nitroglycerin (Nitrostat) 0.4 mg PRN Q5MIN PRN SL CP RATING > 1/10 05/23/21 09:45 05/24/21 09:44 05/23/21 10:08 Nitroglycerin (Nitrostat) 0.4 mg PRN Q5MIN PRN SL CHEST PAIN 05/23/21 10:00 UNV EKG EKG EKG ordered and interpreted by myself at 0949 hours is sinus rhythm at 68 bpm, unremarkable intervals, no axis deviation, no acute ischemic findings, no STEMI Radiology/Procedures Radiology/Procedures PROCEDURE: XR CHEST 1V.05/23/2021 10:07 AM REASON FOR STUDY: Reason: chest pain / Spl. Instructions: / History: . COMPARISON: None FINDINGS: The lungs are clear. No pleural fluid is seen. Heart size and pulmonary vascularity appear normal. IMPRESSION: No acute abnormality. Electronically signed by: Young Herrera Jr., MD (05/23/2021 10:07 AM) [id number] Heart Score C/O Chest Pain: Yes HEART Score for Chest Pain: HEART Score for Chest Pain Response (Comments) Value History Slighlty/Non-Suspicious 0 ECG Normal 0 Age >45 - < 65 1 Risk Factors 1 or 2 Risk Factors 1 Troponin < Normal Limit 0 Total 2 Risk Factors: Risk Factors: DM, Current or recent (<one month) smoker, HTN, HLP, family history of CAD, obesity. Risk Scores: Risk Factors: DM, Current or recent (<one month) smoker, HTN, HLP, family history of CAD, obesity. Course & Med Decision Making Course & Med Decision Making ABCs unremarkable HPI physical exam and comprehensive ER work-up nonconcerning for any emergent or surgical issues Heart score 2. I discussed that this might be an acute presentation more concerning pathology such as ACS, pulmonary embolism, PE and other potentially life-threatening diagnosis but joint decision after reviewing all findings today is to discharge home with close PCP follow-up Strict return precautions discussed and understood by patient, all questions and concerns addressed prior to ER departure Linda Disclaimer Linda Disclaimer This electronic medical record was generated, in whole or in part, using a voice recognition dictation system. Departure Departure: Impression: Primary Impression: Chest pain Disposition: 01 HOME / SELF CARE / HOMELESS Condition: STABLE Referrals: KATHERINE KELLY APRN (PCP) Patient Instructions: Chest Pain (Nonspecific) Additional Instructions: You were seen for chest pain. Your workup did not show any acute abnormalities today, but does not indicate that you do not have underlying cardiovascular disease. You do need to follow up with your primary doctor and potentially a specialty development consultant for further evaluation and treatment. As disclosed, I recommend a stress test and/or echocardiogram be performed in the near future. Role of cardiac observation was discussed but outpatient follow-up was preferred. As such, you should return to the ED if you develop worsening chest pain, shortness of breath, fever, abnormal sweating, leg swelling, or any other new or concernin g symptoms. MARILEE HAGER DO May 23, 2021 09:43
[2021-05-23] MEDS ORDERED: ASPIRIN 325 MG TABLET PO ONE (09:45)
[2021-05-23] MEDS ORDERED: NITROGLYCERIN SUBLINGUAL 0.4 MG BOTTLE OF 25. SL PRN ×2 (09:45→10:00)
[2021-05-23 10:08] VITALS: BP 146/89
--- NOTE | 2021-05-23 10:10 | RAD ---
PROCEDURE: XR CHEST 1V.05/23/2021 10:07 AM REASON FOR STUDY: Reason: chest pain / Spl. Instructions: / History: . COMPARISON: None FINDINGS: The lungs are clear. No pleural fluid is seen. Heart size and pulmonary vascularity appear normal. IMPRESSION: No acute abnormality. Electronically signed by: Young Herrera Jr., MD (05/23/2021 10:07 AM) [id number]
[2021-05-23 10:19] LABS: BASO % 0 % (0-3); EOS % 0 % (0-3); HEMATOCRIT 39.7 % (36.0-47.0); HEMOGLOBIN 13.6 g/dL (12.0-15.5); LYMPH # 1.6 x10^3/uL (1.0-4.8); LYMPH % 39 % (24-48); MEAN CORPUSCULAR HEMOGLOBIN 30 pg (25-35); MEAN CORPUSCULAR HGB CONC 34 g/dL (31-37); MEAN CORPUSCULAR VOLUME 86 fL (79-100); MONO # 0.3 x10^3/uL (0.0-1.1); MONO % 7 % (0-9); NEUT # 2.2 x10^3uL (1.8-7.7); NEUT % 54 % (31-73); PLATELET COUNT 224 x10^3/uL (140-400); RED CELL DISTRIBUTION WIDTH 12.5 % (11.5-14.5); WHITE BLOOD COUNT 4.1 x10^3/uL (4.0-11.0)
[2021-05-23 10:25] LABS: CALCIUM 9.1 mg/dL (8.5-10.1); CREATININE 0.9 mg/dL (0.6-1.0); GFR 67.1; POTASSIUM 3.7 mmol/L (3.5-5.1)
--- NOTE | 2021-05-23 11:23 | EKG ---
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
== END 2021-05-23 11:33 | disposition home or self-care (01) ==
LOC: ER 09:34
DX: R07.2 Precordial pain (principal); J45.909 Unspecified asthma, uncomplicated; Z88.2 Allergy status to sulfonamides; Z88.5 Allergy status to narcotic agent; Z88.8 Allergy status to other drugs, medicaments and biological substances
CPT/HCPCS: 36415; 71045; 80048; 84484; 85025; 85379; 93005; 99285